=== PATIENT | female | born 1955 | race Caucasian/White ===

== ENCOUNTER 2018-03-31 12:06 | Day surgery (SDC) | payer OTHER ==
[~2018-03-31] VITALS: Ht 160 cm; Wt 95.2 kg
[~2018-03-31 12:06] MED LIST: ASCO500 PO; ASPI81CH PO; ATEN25 PO; CHOL10002; KRILL OIL500 MG PO; MELO7.5 PO; SPIR25 PO; Super B Comple150 MG PO
== END 2018-03-31 14:08 | disposition home or self-care (01) ==
LOC: ORSCSDS 12:06
PROVIDERS: Ophthalmology
PROC: 08RJ3JZ Replacement of Right Lens with Synthetic Substitute, Percutaneous Approach (ICD-10-PCS; principal; 2018-03-31 13:30)
DX: H25.11 Age-related nuclear cataract, right eye (principal); I10 Essential (primary) hypertension; E66.01 Morbid (severe) obesity due to excess calories; Z68.37 Body mass index [BMI] 37.0-37.9, adult; Z79.899 Other long term (current) drug therapy; Z79.82 Long term (current) use of aspirin
CPT/HCPCS: J2250; J3010; V2632